=== PATIENT | male | born 1980 | race Caucasian/White ===

== ENCOUNTER 2018-01-05 05:16 | Day surgery (SDC) | payer OTHER ==
[2018-01-05] MEDS ORDERED: LIDOCAINE 2% INJ-PF (20 MG/ML) 10 ML AMPUL ONE (06:22)
[2018-01-05] MEDS ORDERED: FENTANYL CITRATE INJ/PF 100 MCG/2 ML AMPUL ONE (06:22)
[2018-01-05] MEDS ORDERED: PROPOFOL INJ 200 MG/20 ML VIAL IV ONE (06:23)
[2018-01-05] MEDS ORDERED: ACETAMINOPHEN 1,000 MG/100 ML RTUPB IV ONE (06:23)
[2018-01-05] MEDS ORDERED: MIDAZOLAM 2 MG/2 ML INJ ONE (06:23)
[2018-01-05] MEDS ORDERED: ONDANSETRON HCL INJ/PF 4 MG/2 ML SDV ONE (06:23)
[2018-01-05] MEDS ORDERED: DEXAMETHASONE SOD PHOSPHATE INJ 4 MG/1 ML VIAL ONE (06:23)
[2018-01-05] MEDS ORDERED: LIDOCAINE 1% INJ-PF (10 MG/ML) 30 ML SDV ONE (06:41)
[2018-01-05] MEDS ORDERED: BUPIVACAINE HCL 0.5 % INJ/PF 30 ML SDV ONE (06:41)
[2018-01-05] MEDS ORDERED: CEFAZOLIN 2 GM/D5W RTU 2 GM/50 ML RTUPB IV ONE (07:28)
[2018-01-05] MEDS ORDERED: SUCCINYLCHOLINE CHLORIDE INJ 200 MG/10 ML VIAL ONE (07:44)
[2018-01-05] MEDS ORDERED: MEPERIDINE HCL/PF INJ 25 MG/1 ML DISP.SYRIN IV PRN (07:47)
[2018-01-05] MEDS ORDERED: FENTANYL CITRATE INJ/PF 100 MCG/2 ML AMPUL IV PRN ×3 (07:47)
[2018-01-05] MEDS ORDERED: DIPHENHYDRAMINE HCL 50 MG/ML VIAL IV PRN (07:47)
[2018-01-05] MEDS ORDERED: MORPHINE SULFATE 10 MG/ML INJ IV PRN (07:47)
[2018-01-05] MEDS ORDERED: ONDANSETRON HCL INJ/PF 4 MG/2 ML SDV IV PRN ×2 (07:47→09:00)
[2018-01-05] MEDS ORDERED: PROMETHAZINE HCL INJ 25 MG/1 ML VIAL IV PRN ×2 (07:47)
[2018-01-05] MEDS ORDERED: OXYCODONE-ACETAMINOPHEN 5-325 MG TABLET PO PRN (09:00)
[2018-01-05] MEDS ORDERED: OXYCODONE-ACETAMINOPHEN 5-325 MG TABLET ONE (09:12)
--- NOTE | 2018-01-05 09:23 | OPERATIVE REPORT E ---
Operative Report NAME: JULIANN CLANCY : 1980 AGE: 37Y DATE OF SURGERY: 01/05/2018 ROOM: PREOPERATIVE DIAGNOSIS: Left wrist pain. POSTOPERATIVE DIAGNOSES: 1. Left wrist dorsal capsular impingement. 2. Left wrist radial-sided TFCC tear. PROCEDURE: Left wrist arthroscopy with debridement. SURGEON: LEE YO M.D. ANESTHESIA: General. BLOOD LOSS: Minimal. COMPLICATIONS: None. 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 He has failed nonoperative treatment. DESCRIPTION OF PROCEDURE: Following the induction of a general anesthetic and administration of antibiotics, the patient was positioned supine on the operating room table. Bony prominences were padded. Tourniquet was placed approximately on the left arm, but not inflated. The left upper extremity was sterilely prepped with ChloraPrep and draped in a standard fashion. The arm was exsanguinated and tourniquet inflated to 250 mmHg. Twenty pounds of traction was placed across the radiocarpal joint with an AccuMed wrist traction tower. A 3/4 portal was made first. Lead localization was performed. Sharp incision was performed through skin only. Blunt trocar was used for entry. Diagnostic arthroscopy was then performed. Diagnostic arthroscopy demonstrated intact scapholunate ligament. There was a small radial-sided tear of the TFCC. A 6/R portal was then made. Needle localization was performed. Sharp incision was performed through skin only. A clamp was used for blunt entry. Shaver was brought in and debridement of the TFCC was performed back to a stable base. There was also some inflammation on the radial aspect of the wrist and this was debrided back to a stable base. The arthroscope was then placed into the 6/R portal with the back onto the capsule. The capsule was quite lax and impinging on the wrist. The shaver was brought in through the 3/4 portal and debridement of the wrist capsule was performed in a similar fashion to debridement for a ganglion cyst. Capsule was debrided until visualization of the extensor pollicis longus tendon was seen. The arthroscope and shaver were then removed. Portals were closed with nylon suture and 0.25% Marcaine was injected for postoperative analgesia. A bulky sterile dressing was then applied. The patient tolerated the procedure well without complications and was brought to recovery room in stable condition. DICTATING PHYSICIAN: LEE YO M.D. [id number] PHY#: [id number]: [id number] JOB#: [id number] ACCT: [id number] cc:LEE YO M.D. >
[2018-01-05 10:48] VITALS: BP 133/85
== END 2018-01-05 10:15 | disposition home or self-care (01) ==
LOC: OROUT 05:16
PROVIDERS: ATTEND Orthopaedic Surgery
DX: M25.832 Other specified joint disorders, left wrist (principal); S63.592A Other specified sprain of left wrist, initial encounter; X58.XXXA Exposure to other specified factors, initial encounter; M25.532 Pain in left wrist; I10 Essential (primary) hypertension; Z79.899 Other long term (current) drug therapy
CPT/HCPCS: 29846; J2250; J3490 ×2; J1100; J3010; J0330; J2405; J2704; J0690; J0131; 1830